=== PATIENT | male | born 1995 | race Caucasian/White ===

== ENCOUNTER 2022-10-06 08:38 | Inpatient (IN) | payer MEDICAID, SELFPAY ==
--- NOTE | ~2022-10-06 | US_ITS ---
EXAMINATION: US ABDOMEN LIMITED CLINICAL INFORMATION: Right upper quadrant pain. COMPARISON: None available. TECHNIQUE: Real-time imaging of the right upper quadrant abdominal viscera. FINDINGS: PANCREAS: Not seen. LIVER: Normal. The liver is normal in size. The liver contour is normal. Parenchymal echogenicity is normal. No focal hepatic lesion. There is no intrahepatic biliary duct dilatation seen. GALLBLADDER: Gallstones. The gallbladder wall is thickened and edematous suggestive of acute cholecystitis. COMMON BILE DUCT: Normal in caliber measuring 0.2 cm in diameter. RIGHT KIDNEY: Normal. No hydronephrosis. No renal calculi or focal parenchymal lesions. The kidney measures 10.7 cm in maximum dimension. FREE FLUID: None. US/US abdomen limited IMPRESSION: Gallstones. Thickened edematous gallbladder wall suggestive of acute cholecystitis.
[2022-10-06 08:52] VITALS: BP 121/74; PULSE 92; RESP 20; TEMP 36.6; O2SAT 98; BMI 33.0
[2022-10-06 09:23] LABS: Hematocrit 49.2 % (42.0-52.0); Hemoglobin 17.5 g/dl (14.0-18.0); Mean Corpuscular HGB Conc 35.6 g/dl (31.0-36.0); Mean Corpuscular Hemoglobin 32.2 pg (27.0-33.0); Mean Corpuscular Volume 90.4 fL (80.0-98.0); Mean Platelet Volume 10.5 fL (9.4-12.4); Platelet Count 349 X10*3/uL (160-400); Red Blood Count 5.44 X10*6/uL (4.60-5.80); Red Cell Distribution Width 11.7 % (11.0-16.0); White Blood Count 17.2 X10*3/uL (4.8-10.8)
[2022-10-06 09:49] LABS: Alanine Aminotransferase 50 U/L (0-40); Albumin Level 4.2 g/dL (3.5-5.0); Alkaline Phosphatase 137 U/L (39-117); Anion Gap 15 (12-20); Aspartate Amino Transferase 39 U/L (5-37); Bilirubin Direct 1.9 mg/dL (0.0-0.5); Bilirubin Total 3.7 mg/dL (0.0-1.0); Blood Urea Nitrogen 15 mg/dL (9-16); Calcium 9.5 mg/dL (8.4-10.2); Carbon Dioxide 30 mmol/L (22-29); Chloride 93 mmol/L (96-108); Creatinine Clr Calc Pharmacy 123.7; Estimated Glomerular Filt Rate > 60; Glucose Random 135 mg/dL (60-115); Lipase 16 U/L (8-78); Magnesium 2.6 mg/dL (1.6-2.6); Potassium 3.7 mmol/L (3.3-5.1); Sodium 134 mmol/L (135-145); Total Protein 7.4 g/dL (6.5-8.0)
[2022-10-06 10:03] VITALS: BP 123/90; PULSE 82; RESP 16; O2SAT 95
--- NOTE | 2022-10-06 10:06 | ED.ABDPAIN ---
HPI - Abdominal Pain General Chief Complaint: Abdominal Pain Stated Complaint: R side pain, not eating Time Seen by Provider: 10/06/22 09:52 Source: patient Limitations: no limitations History of Present Illness HPI narrative: Patient states pain started 6 days ago and he has not been able to eat solid food since. He has been drinking some liquids however. No prior history of similar pain. It is severe. Positive nausea with no vomiting. Some diarrhea at the onset but none recently. No back pain No lower abdominal pain Pain is and the right upper quadrant only. No precipitating factors of which he is aware History of appendectomy approximately 11 years ago. No postop complications or other abdominal surgery Related Data Allergies Allergy/AdvReac Type Severity Reaction Status Date / Time No Known Allergies Allergy Verified 10/06/22 08:56 Review of Systems Comments: No fevers or chills Comments: No chest pain Comments: No cough or dyspnea Comments: Right upper quadrant abdominal pain as noted. Comments: No dysuria or hematuria Comments: No musculoskeletal complaint Comments: No rash Comments: No focal deficit PMFSH Social History Social History Smoked in Last 30 Days: No Use of substances other than those prescribed or required for medical reasons: Yes Substance Use Type: Marijuana Advance Directives: No Physical Exam ED Vital Signs: Vital Signs - 24 hr 10/06/22 08:52 10/06/22 10:03 10/06/22 11:41 Temperature 98 F Pulse Rate 92 82 59 Respiratory Rate 20 16 16 Blood Pressure 121/74 123/90 H 121/71 Pulse Oximetry 98 95 95 Oxygen Delivery Method Room Air Room Air Room Air BMI result Body Mass Index 33.0 Const Other: Awake and alert. Appears uncomfortable but no severe distress HENMT Other: Mucosa dry Resp Other: Clear and equal bilaterally without wheezes rales or rhonchi Cardio Other: Regular rate and rhythm without murmurs rubs or gallops GI Other: Soft and nondistended. Right upper quadrant abdominal tenderness with guarding. Remainder of abdominal exam is unremarkable without tenderness Skin Other: Warm pink and dry without rash Neuro Other: No gross focal neuro deficits Medical Decision Making Medical Decision Making MDM Narrative: Patient with 6 days of severe right upper quadrant abdominal pain. Hepatitis Biliary colic Cholecystitis Choledocholithiasis Pancreatitis Duodenal ulcer Diverticulitis less likely. 10:09 Given 6 days of pain with minimal p.o. intake, will start IV fluids. [place] [id number]. Patient without gross signs of sepsis however. Will order lactic acid and blood cultures. Will also order IV antibiotics Metabolic panel is significant for total bilirubin of 3.7. AST and ALT are mildly elevated at 39 and 50 respectively. Alk-phos so 137. His lipase is normal at 16. Ultrasound ordered. 12:45. Ultrasound shows multiple gallstones with question of the impacted stone at the gallbladder neck. Gallbladder wall is thickened. Biliary ducts are normal. Case discussed overt tiger text with Dr. Toure, general surgery, who will admit to his service for further care. Final diagnosis cholecystitis secondary to cholelithiasis Lab Data 10/06/22 09:12 10/06/22 09:12 Labs: Lab Results 10/06/22 10/06/22 10/06/22 Range/Units 09:12 09:12 11:12 WBC 17.2 H (4.8-10.8) X10*3/uL RBC 5.44 (4.60-5.80) X10*6/uL Hgb 17.5 (14.0-18.0) g/dl Hct 49.2 (42.0-52.0) % MCV 90.4 (80.0-98.0) fL MCH 32.2 (27.0-33.0) pg MCHC 35.6 (31.0-36.0) g/dl RDW 11.7 (11.0-16.0) % Plt Count 349 (160-400) X10*3/uL MPV 10.5 (9.4-12.4) fL Absolute Nucleated RBC 0.000 (0.0-0.012) X10*3/uL Nucleated RBC % (auto) 0.0 (0.0-0.2) /100WBC Sodium 134 L (135-145) mmol/L Potassium 3.7 (3.3-5.1) mmol/L Chloride 93 L (96-108) mmol/L Carbon Dioxide 30 H (22-29) mmol/L Anion Gap 15 (12-20) BUN 15 (9-16) mg/dL Creatinine 0.94 (0.5-1.4) mg/dL Estim Creat Clear Calc 123.7 Estimated GFR > 60 Random Glucose 135 H (60-115) mg/dL Lactic Acid 0.8 (0.5-2.0) mmol/L Calcium 9.5 (8.4-10.2) mg/dL Magnesium 2.6 (1.6-2.6) mg/dL Total Bilirubin 3.7 H (0.0-1.0) mg/dL Direct Bilirubin 1.9 H (0.0-0.5) mg/dL AST 39 H (5-37) U/L ALT 50 H (0-40) U/L Alkaline Phosphatase 137 H (39-117) U/L Total Protein 7.4 (6.5-8.0) g/dL Albumin 4.2 (3.5-5.0) g/dL Lipase 16 (8-78) U/L Medications Administered Discontinued Medications Generic Name Dose Route Start Last Admin Trade Name Freq PRN Reason Stop Dose Admin Piperacillin Sod/Tazobactam 50 mls @ 100 mls/hr 10/06/22 10:11 10/06/22 11:15 Sod 3.375 gm/ Sodium Chloride IV 10/06/22 10:40 Infused ONCE ONE Infusion Ketorolac Tromethamine 30 mg 10/06/22 10:10/06/22 10:21 Ketorolac Tromethamine 15 Mg/Ml Vial IVPUSH 10/06/22 10:05 30 mg ONCE ONE Administration Ondansetron HCl 4 mg 10/06/22 10:10/06/22 10:20 Ondansetron Hcl 4 Mg/2 Ml Vial IVPUSH 10/06/22 10:05 4 mg ONCE ONE Administration Discharge Plan Discharge Patient Disposition: Admitted As Inpatient
[2022-10-06] MEDS: ondansetron HCL 4 MG/2 ML VIAL IVPUSH (10:20)
[2022-10-06] MEDS: Ketorolac Tromethamine 15 MG/ML VIAL 30 MG IVPUSH (10:21)
--- NOTE | 2022-10-06 10:28 | PC.NURSE ---
Pt is alert/oriented, reports RUQ x 6 days with inability to hold anything down x 6 days. Skin pwd. +bowel sounds, tender to ruq. Pain 6/10 at this time. awaiting imaging and second bld cx, abd to follow. IV established to left ac
[2022-10-06] MEDS: Piperacillin Sodium/Tazobactam 3.375 GM in 0.9 % Sodium Chloride 50 ML IV ×3 (10:45→21:47)
[2022-10-06 11:31] LABS: Lactic Acid 0.8 mmol/L (0.5-2.0)
[2022-10-06 11:41] VITALS: BP 121/71; PULSE 59; RESP 16; O2SAT 95
--- NOTE | 2022-10-06 13:08 | P.HPGS_ITS ---
History of Present Illness History of Present Illness Date of Service: 10/06/22 Chief complaint: Acute cholecystitis Narrative: Edward Martel is a 27 year old male presenting with a six day history of abdominal pain in the right upper quadrant and nausea and vomiting. He initially felt the nausea and vomiting was due to food poisoning. But the symptoms persisted in the abdominal pain increased in severity. He reports increased pain with movement but denies fever or chills. He is unable to tolerate any food or liquid. Noted his urine to be come dark orange in color. Subsequent workup in the emergency department revealed an elevated WBC of 17 K, elevated bilirubin level and ultrasound showing a gallbladder with thickened gallbladder wall and multiple gallstones within the gallbladder. The common bile duct however appeared normal. On initial presentation the patient reports his abdominal pain was 8/10 however currently it is 5/10. Review of Systems Review of Systems: Yes all other systems are reviewed and are negative Constitutional: Constitutional: Denies chills, Denies fever(s), Denies headache(s), Reports poor appetite and Denies weakness ENT: Denies headache(s) Cardiovascular: Cardiovascular: Denies chest pain, Denies irregular heart rhyt hm, Denies palpitations and Denies dyspnea Respiratory: Respiratory: Denies cough, Denies excessive phlegm production and Denies dyspnea Gastrointestinal: Gastrointestinal: Reports abdominal pain, Denies bloating, Denies change in bowel habits, Denies constipation, Denies heartburn, Denies d iarrhea, Reports nausea and Reports vomiting Genitourinary: Genitourinary: Denies difficulty urinating and Denies urinary frequency Comments: [place] Musculoskeletal: Musculoskeletal: Denies back pain, Denies muscle weakness and Denies numbness Integumentary/Breasts: Skin/Breast: Denies changing lesions and Denies unusual bruising Neurologic: Denies headache(s), Denies numbness, Denies paresthesias and Denies weakness Psychiatric: Psychiatric: Denies anxiety and Denies depression Endocrine: Endocrine: Denies palpitations Hematologic/Lymphatic: Hematologic/Lymphatic: Denies lymphadenopathy [facility] Social History Social History Smoked in Last 30 Days: No Use of substances other than those prescribed or required for medical reasons: Yes Substance Use Type: Marijuana Advance Directives: No Meds Allergies Allergy/AdvReac Type Severity Reaction Status Date / Time No Known Allergies Allergy Verified 10/06/22 08:56 Active Medications: Current Medications Hydromorphone HCl (Hydromorphone Hcl 0.5 Mg/0.5 Ml Syringe) 0.5 mg IVPUSH Q3H PRN; Protocol PRN Reason: Pain, Severe (Pain Scale 7-10) Acetaminophen (Ofirmev) 1,000 mg in 100 mls @ 400 mls/hr IV Q6H [facility] Stop: 10/07/22 07:14 Dextrose/Lactated Ringer's (D5lr) 1,000 mls @ 125 mls/hr IVCONT .Q8H [facility] Piperacillin Sod/Tazobactam (Sod 3.375 gm/ Sodium Chloride) 50 mls @ 100 mls/hr IV Q6H [facility] Ondansetron HCl (Ondansetron Hcl 4 Mg/2 Ml Vial) 4 mg IVPUSH QID PRN PRN Reason: Nausea Sodium Chloride (0.9 % Sodium Chloride Flush 3 Ml Syringe) 3 ml IVFLUSH QSHIFT [facility] Zolpidem Tartrate (Zolpidem Tartrate 5 Mg Tablet) 5 mg PO BEDTIME PRN PRN Reason: Insomnia Home Medications Medication Instructions Recorded Confirmed Last Taken Type albuterol sulfate 2.5 mg/3 mL 2.5 mg inhalation Q6H 10/06/22 10/06/22 Unknown History (0.083 %) solution for nebulization albuterol sulfate 90 mcg/actuation 2 puff inhalation Q4H PRN 10/06/22 10/06/22 Unknown History aerosol inhaler Shortness Of Breath Physical Exam Vital Signs: Vital Signs: Last Vital Signs Temp 98 F 10/06/22 08:52 Pulse 59 10/06/22 11:41 Resp 16 10/06/22 11:41 BP 121/71 10/06/22 11:41 Pulse Ox 95 10/06/22 11:41 O2 Del Method Room Air 10/06/22 11:41 BMI result Body Mass Index 33.0 Const: General: cooperative and no acute distress Nutritional Appearance: well nourished Orientation/consciousness: patient oriented x3 Limitations: no limitations HEENT: Head: Yes normocephalic and Yes atraumatic Ears: hearing grossly normal bilaterally Resp: Effort & Inspection: normal respiratory effort, no audible wheezes, no cough and no respiratory distress Cardio: Jugular venous distension: no JVD GI: Inspection: Yes normal to inspection Palpation (GI): Soft to palpation, Tenderness to palpation present (GI) in the RUQ and Gandhi's sign positive; with no rebound tenderness, no guarding and not rigid Percussion: Yes normal to percussion Auscultation: normal bowel sounds Rectal Exam - Male: Yes deferred Skin: Other: Warm, dry, no rash Neuro: General: patient oriented x3 Extrem: General: Yes no clubbing, cyanosis or edema Results Results Labs: Short CBC 10/06/22 Range/Units 09:12 WBC 17.2 H (4.8-10.8) X10*3/uL Hgb 17.5 (14.0-18.0) g/dl Hct 49.2 (42.0-52.0) % Plt Count 349 (160-400) X10*3/uL BMP 10/06/22 09:12 Sodium 134 L Potassium 3.7 Chloride 93 L Carbon Dioxide 30 H BUN 15 Creatinine 0.94 Calcium 9.5 Liver Function 10/06/22 Range/Units 09:12 Total Bilirubin 3.7 H (0.0-1.0) mg/dL Direct Bilirubin 1.9 H (0.0-0.5) mg/dL AST 39 H (5-37) U/L ALT 50 H (0-40) U/L Alkaline Phosphatase 137 H (39-117) U/L Albumin 4.2 (3.5-5.0) g/dL Assessment and Plan (1) Acute cholecystitis: Status: Acute (2) Cholelithiasis: Status: Acute Plan 27-year-old male patient presenting with acute cholecystitis due to cholelithiasis. Patient also has elevated liver functions which may be due gallbladder inflammation. Patient will be admitted, made NPO and started on IV fluids and antibiotics. LFTs will be repeated in a.m.. If they remain elevated a MR CP will be performed. If LFTs are improved, will schedule for laparoscopic cholecystectomy tomorrow. Patient understands and agrees with the plan. Time Spent With Patient Time: Total time managing care of this patient today ____ minutes. Quality Stroke Does the patient have a stroke diagnosis?: No VTE Prior VTE?: No VTE Risk Level:: Surgical - moderate VTE Device Contraindication: N/A - Device Ordered VTE Drug Contraindication: Treatment Not Indicated Procedures Date of Service Date of Service: 10/06/22
[2022-10-06 13:21] VITALS: BP 120/64; PULSE 65; RESP 16; O2SAT 95
[2022-10-06] MEDS: Acetaminophen 1,000 MG/100 ML PIGGYBACK 400 MG IV ×2 (13:37→21:23)
[2022-10-06] MEDS: Dextrose 5 % and Lactated Ring 1,000 ML 125 ML IVCONT ×2 (13:40→23:54)
--- NOTE | 2022-10-06 14:01 | PHA.MEDREC ---
Pharmacy Consult ? Medication Reconciliation Pharmacy has completed the medication reconciliation.
--- NOTE | 2022-10-06 14:04 | PC.NURSE ---
seen by Dr Toure, plan to trend labs tomorrow to determine dispo with plan for gallbladder removal if numbers trending down and consult GI if numbers trending up
[2022-10-06 20:00] VITALS: BP 119/61; PULSE 52; RESP 20; TEMP 36.9; O2SAT 96
[2022-10-06 23:47] VITALS: BP 140/66; PULSE 62; RESP 20; TEMP 37.1; O2SAT 95
[2022-10-06] MEDS: HYDROmorphone HCl 0.5 MG/0.5 ML SYRINGE IVPUSH (23:55)
[2022-10-07] VITALS (24 sets, daily range): BP systolic 105–141; BP diastolic 56–89; PULSE 50–92; RESP 12–20; TEMP 36.3–37.2; O2SAT 87–100; BMI 33.0
[2022-10-07] MEDS: 0.9 % Sodium Chloride Flush 3 ML SYRINGE IVFLUSH ×3 (01:27→18:18)
[2022-10-07] MEDS: Piperacillin Sodium/Tazobactam 3.375 GM in 0.9 % Sodium Chloride 50 ML IV ×3 (02:00→21:25)
[2022-10-07] MEDS: Acetaminophen 1,000 MG/100 ML PIGGYBACK 400 MG IV ×3 (02:07→21:07)
[2022-10-07 06:53] LABS: MANUAL DIFF FLAG NO
[2022-10-07 07:02] LABS: Basophils Absolute Auto 0.1 X10*3/uL (0.0-0.2); Basophils Percent Auto 1.1 % (0-2); Eosinophils Absolute Auto 1.3 X10*3/uL (0.0-0.4); Eosinophils Percent Auto 15.1 % (0-4); Hematocrit 45.1 % (42.0-52.0); Hemoglobin 15.5 g/dl (14.0-18.0); Imm Gran Abs Auto 0.05 X10*3/uL (0.00-0.03); Imm Gran Pct Auto 0.6 % (0.0-0.4); Lymphocytes Absolute Auto 1.1 X10*3/uL (1.2-4.9); Lymphocytes Percent Auto 13.3 % (20-40); Mean Corpuscular HGB Conc 34.4 g/dl (31.0-36.0); Mean Corpuscular Hemoglobin 32.5 pg (27.0-33.0); Mean Corpuscular Volume 94.5 fL (80.0-98.0); Mean Platelet Volume 10.5 fL (9.4-12.4); Monocytes Absolute Auto 0.9 X10*3/uL (0.1-1.2); Monocytes Percent Auto 10.9 % (2-11); Platelet Count 289 X10*3/uL (160-400); Red Blood Count 4.77 X10*6/uL (4.60-5.80); Red Cell Distribution Width 11.7 % (11.0-16.0); White Blood Count 8.4 X10*3/uL (4.8-10.8)
[2022-10-07 07:21] LABS: Alanine Aminotransferase 44 U/L (0-40); Albumin Level 3.3 g/dL (3.5-5.0); Alkaline Phosphatase 104 U/L (39-117); Anion Gap 11 (12-20); Aspartate Amino Transferase 28 U/L (5-37); Bilirubin Direct 0.8 mg/dL (0.0-0.5); Bilirubin Total 1.8 mg/dL (0.0-1.0); Blood Urea Nitrogen 13 mg/dL (9-16); Calcium 8.7 mg/dL (8.4-10.2); Carbon Dioxide 35 mmol/L (22-29); Chloride 95 mmol/L (96-108); Estimated Glomerular Filt Rate > 60; Glucose Random 109 mg/dL (60-115); Potassium 3.4 mmol/L (3.3-5.1); Sodium 138 mmol/L (135-145); Total Protein 5.8 g/dL (6.5-8.0)
--- NOTE | 2022-10-07 08:01 | P.PNGS_ITS ---
Subjective Subjective Date of Service: 10/07/22 Interval history: Patient feels improved with decreased abdominal pain. Physical Exam Vital Signs: Vital Signs: Last Vital Signs Temp 97.7 F 10/07/22 07:58 Pulse 82 10/07/22 07:58 Resp 20 10/07/22 07:58 BP 126/67 10/07/22 07:58 Pulse Ox 94 10/07/22 07:58 O2 Del Method Room Air 10/07/22 07:58 BMI result Body Mass Index 33.0 Const: General: comfortable Nutritional Appearance: well nourished Orientation/consciousness: patient oriented x3 Limitations: no limitations Resp: Effort & Inspection: normal respiratory effort, no audible wheezes, no cough and no respiratory distress GI: Inspection: Yes normal to inspection Palpation (GI): Soft to palpation and Tenderness to palpation present (GI) in the RUQ and Gandhi's sign positive Neuro: General: patient oriented x3 Extrem: General: Yes no clubbing, cyanosis or edema Objective Data Active Medications Hydromorphone HCl (Hydromorphone Hcl 0.5 Mg/0.5 Ml Syringe) 0.5 mg IVPUSH Q3H PRN; Protocol PRN Reason: Pain, Severe (Pain Scale 7-10) Last Admin: 10/06/22 23:55 Dose: 0.5 mg Documented By: MASOUD Dextrose/Lactated Ringer's (D5lr) 1,000 mls @ 125 mls/hr IVCONT .Q8H [facility] Last Admin: 10/06/22 23:54 Dose: 125 mls/hr Documented By: MASOUD Piperacillin Sod/Tazobactam (Sod 3.375 gm/ Sodium Chloride) 50 mls @ 100 mls/hr IV Q6H [facility] Last Infusion: 10/07/22 02:36 Dose: 0 mls/hr Documented By: MASOUD Cefotetan Disodium 2 gm/ (Sodium Chloride) 50 mls @ 100 mls/hr IV PREOP ONE Stop: 10/07/22 08:06 Ondansetron HCl (Ondansetron Hcl 4 Mg/2 Ml Vial) 4 mg IVPUSH QID PRN PRN Reason: Nausea Sodium Chloride (0.9 % Sodium Chloride Flush 3 Ml Syringe) 3 ml IVFLUSH QSHIFT [facility] Last Admin: 10/07/22 01:27 Dose: 3 ml Documented By: MASOUD Zolpidem Tartrate (Zolpidem Tartrate 5 Mg Tablet) 5 mg PO BEDTIME PRN PRN Reason: Insomnia Labs 10/07/22 06:22 10/07/22 06:22 Labs: Laboratory Results - last 24 hr 10/06/22 10/06/22 10/06/22 09:12 09:12 11:12 MCV 90.4 MCH 32.2 MCHC 35.6 RDW 11.7 Plt Count 349 MPV 10.5 Immature Gran % (Auto) Neut % (Auto) Lymph % (Auto) [place] % (Auto) Eos % (Auto) Baso % (Auto) Lymph # (Auto) [place] # (Auto) Eos # (Auto) Baso # (Auto) Abs Immat Gran (auto) Absolute Neuts (auto) Absolute Nucleated RBC 0.000 Nucleated RBC % (auto) 0.0 Anion Gap 15 Estim Creat Clear Calc 123.7 Estimated GFR > 60 Random Glucose 135 H Lactic Acid 0.8 Calcium 9.5 Magnesium 2.6 Total Bilirubin 3.7 H Direct Bilirubin 1.9 H AST 39 H ALT 50 H Alkaline Phosphatase 137 H Total Protein 7.4 Albumin 4.2 Lipase 16 10/07/22 10/07/22 06:22 06:22 MCV 94.5 MCH 32.5 MCHC 34.4 RDW 11.7 Plt Count 289 MPV 10.5 Immature Gran % (Auto) 0.6 H Neut % (Auto) 59.0 Lymph % (Auto) 13.3 L [place] % (Auto) 10.9 Eos % (Auto) 15.1 H Baso % (Auto) 1.1 Lymph # (Auto) 1.1 L [place] # (Auto) 0.9 Eos # (Auto) 1.3 H Baso # (Auto) 0.1 Abs Immat Gran (auto) 0.05 H Absolute Neuts (auto) 5.0 Absolute Nucleated RBC 0.000 Nucleated RBC % (auto) 0.0 Anion Gap 11 L Estim Creat Clear Calc 114.0 Estimated GFR > 60 Random Glucose 109 Lactic Acid Calcium 8.7 D Magnesium Total Bilirubin 1.8 H Direct Bilirubin 0.8 H AST 28 ALT 44 H Alkaline Phosphatase 104 Total Protein 5.8 L Albumin 3.3 L Lipase Procedures Date of Service Date of Service: 10/07/22 Progress Note: A&P Assessment and plan (1) Acute cholecystitis: Status: Acute (2) Cholelithiasis: Status: Acute Plan Overall, patient i improved with decreased abdominal pain; LFTs are trending do wnward as well suggestive of Mirizzi's syndrome or passed stone. Discussed laparoscopic or possible open cholecystectomy with the patient including the procedure, alternatives and risks. He consents to the procedure, which has been added on to todays schedule. Time Spent With Patient Time: Total time managing care of this patient today ____ minutes. No Severe Sepsis: No Severe Sepsis Quality Stroke Does the patient have a stroke diagnosis?: No VTE Prior VTE?: No VTE Risk Level:: Surgical - moderate VTE Device Contraindication: N/A - Device Ordered VTE Drug Contraindication: Treatment Not Indicated
[2022-10-07] MEDS: Dextrose 5 % and Lactated Ring 1,000 ML 125 ML IVCONT ×2 (08:04→17:26)
[2022-10-07] MEDS: ondansetron HCL 4 MG/2 ML VIAL IVPUSH (08:05)
--- NOTE | 2022-10-07 08:45 | MHC.CM.PN ---
CM met with Patient at bedside. Patient lives alone in a house and is functionally independent. Patient is currently unemployed and has no insurance; a referral has been made to [facility] [place] Financial Department. Home/self care is the goal and CM has initiated and will follow for dc planning. Patient is not covid vax'd and his PCP is Dr. Gato Byrd.
--- NOTE | 2022-10-07 11:46 | HO.ANESPROP2 ---
HPI - Anesthesia Eval Consult details Narrative: for lap. cholecystectomy PMFSH Active Problems Active Problems: All Active Problems (Updated 10/06/22 @ 12:47 by Odell Curiel MD) Acute cholecystitis (Acute) Cholelithiasis (Acute) Family History Family history of problems with anesthesia: No Surgical History History of Problems with Anesthesia: No Social History Social History Household Members: None Housing: House Do you presently have visiting nurse or other home services: No Patient Tobacco Use Status: Former Tobacco user Quit Date: 2015 Tobacco use type: Cigarette e-Cigarette/Vaping Use: Former Use Second Hand Smoke Exposure: Yes Substance Use Type: Marijuana service: No Current occupational status: unemployed Meds Allergies Allergy/AdvReac Type Severity Reaction Status Date / Time No Known Allergies Allergy Verified 10/06/22 08:56 Active Medications: Current Medications Hydromorphone HCl (Hydromorphone Hcl 0.5 Mg/0.5 Ml Syringe) 0.5 mg IVPUSH Q3H PRN; Protocol PRN Reason: Pain, Severe (Pain Scale 7-10) Last Admin: 10/06/22 23:55 Dose: 0.5 mg Dextrose/Lactated Ringer's (D5lr) 1,000 mls @ 125 mls/hr IVCONT .Q8H [facility] Last Infusion: 10/07/22 11:03 Dose: 0 mls/hr Piperacillin Sod/Tazobactam (Sod 3.375 gm/ Sodium Chloride) 50 mls @ 100 mls/hr IV Q6H [facility] Last Infusion: 10/07/22 09:39 Dose: Infused Ondansetron HCl (Ondansetron Hcl 4 Mg/2 Ml Vial) 4 mg IVPUSH QID PRN PRN Reason: Nausea Last Admin: 10/07/22 08:05 Dose: 4 mg Sodium Chloride (0.9 % Sodium Chloride Flush 3 Ml Syringe) 3 ml IVFLUSH QSHIFT [facility] Last Admin: 10/07/22 08:01 Dose: 3 ml Zolpidem Tartrate (Zolpidem Tartrate 5 Mg Tablet) 5 mg PO BEDTIME PRN PRN Reason: Insomnia Home Medications Medication Instructions Recorded Confirmed Last Taken Type albuterol sulfate 2.5 mg/3 mL 2.5 mg inhalation Q6H 10/06/22 10/06/22 Unknown History (0.083 %) solution for nebulization albuterol sulfate 90 mcg/actuation 2 puff inhalation Q4H PRN 10/06/22 10/06/22 Unknown History aerosol inhaler Shortness Of Breath Exam Exam Date and Time: October 07, 2022 1146 Height,Weight and Vital Signs: Height 5 ft 6 in Weight 92.98 kg Last Vital Signs Temp 97.4 F 10/07/22 11:20 Pulse 62 10/07/22 11:20 Resp 18 10/07/22 11:20 BP 124/73 10/07/22 11:20 Pulse Ox 95 10/07/22 11:20 O2 Del Method Room Air 10/07/22 11:20 Pertinent Lab Results Pertinent Lab Results: Laboratory Tests 10/06/22 10/06/22 10/06/22 09:12 09:12 11:12 WBC 17.2 H RBC 5.44 Hgb 17.5 Hct 49.2 MCV 90.4 MCH 32.2 MCHC 35.6 RDW 11.7 Plt Count 349 MPV 10.5 Immature Gran % (Auto) Neut % (Auto) Lymph % (Auto) [place] % (Auto) Eos % (Auto) Baso % (Auto) Lymph # (Auto) [place] # (Auto) Eos # (Auto) Baso # (Auto) Abs Immat Gran (auto) Absolute Neuts (auto) Absolute Nucleated RBC 0.000 Nucleated RBC % (auto) 0.0 Sodium 134 L Potassium 3.7 Chloride 93 L Carbon Dioxide 30 H Anion Gap 15 BUN 15 Creatinine 0.94 Estim Creat Clear Calc 123.7 Estimated GFR > 60 Random Glucose 135 H Lactic Acid 0.8 Calcium 9.5 Magnesium 2.6 Total Bilirubin 3.7 H Direct Bilirubin 1.9 H AST 39 H ALT 50 H Alkaline Phosphatase 137 H Total Protein 7.4 Albumin 4.2 Lipase 16 10/07/22 10/07/22 06:22 06:22 WBC 8.4 RBC 4.77 Hgb 15.5 Hct 45.1 MCV 94.5 MCH 32.5 MCHC 34.4 RDW 11.7 Plt Count 289 MPV 10.5 Immature Gran % (Auto) 0.6 H Neut % (Auto) 59.0 Lymph % (Auto) 13.3 L [place] % (Auto) 10.9 Eos % (Auto) 15.1 H Baso % (Auto) 1.1 Lymph # (Auto) 1.1 L [place] # (Auto) 0.9 Eos # (Auto) 1.3 H Baso # (Auto) 0.1 Abs Immat Gran (auto) 0.05 H Absolute Neuts (auto) 5.0 Absolute Nucleated RBC 0.000 Nucleated RBC % (auto) 0.0 Sodium 138 Potassium 3.4 Chloride 95 L Carbon Dioxide 35 H Anion Gap 11 L BUN 13 Creatinine 1.02 Estim Creat Clear Calc 114.0 Estimated GFR > 60 Random Glucose 109 Lactic Acid Calcium 8.7 D Magnesium Total Bilirubin 1.8 H Direct Bilirubin 0.8 H AST 28 ALT 44 H Alkaline Phosphatase 104 Total Protein 5.8 L Albumin 3.3 L Lipase Airway Mallampati Class: II (full casey) TM Dist: >3cm Neck ROM: Full Loose/Missing/Broken Teeth: Yes Heart: ok Lungs: ok Assessment and Plan Assessment Anesthesia Assessment: Anesthesia Plan Discussed and Chart Reviewed Final Anesthetic Review Family History of Problems with Anesthesia: No History of Problems with Anesthesia: No NPO: Yes ASA Class: II Final Preanesthetic Review: No Changes in Pt Med Stat, Meds/Allgs Chart Reviewed, Consent Obtained/Reviewed and Anes Risks/Benef Reviewed Patient Risk: Intermediate Procedure Risk: Intermediate Anesthetic Plan Anesthetic Plan: GA and Agree w/ Assess. and Plan Disposition: Standard PACU
--- NOTE | 2022-10-07 14:28 | W.PM.OPN ---
Operative Note Operative Note Date of Service: 10/07/22 Narrative: Preoperative diagnosis: acute cholecystitis due to cholelithiasis Postoperative diagnosis: Same Procedure: Laparoscopic cholecystectomy, converted to open cholecystectomy Surgeon: Cosme Toure MD Group Billing Coordinator: DEE Agosto Anesthesia: General endotracheal Indications for procedure: 27-year-old male patient presenting with severe abdominal pain right upper quadrant for 6 days presented to the emergency department found to have a markedly thickened gallbladder with multiple gallstones within the gallbladder. Operative findings: Acutely inflamed intrahepatic gallbladder with dense adhesions to the inferior surface against the transverse colon and omentum. Specimen: gallbladder Estimated blood loss: Three hundred Complications: none Procedure details: Patient was brought to the OR and placed in a supine position. After administering general anesthesia the patient's abdomen was prepped with ChloraPrep and draped in a sterile fashion. Local anesthesia consisting of 0.5% Sensorcaine without epinephrine was infiltrated in a periumbilical region. A 5 mm incision was made above the umbilicus in a transverse fashion. The Veress needle was then inserted while elevating abdominal cavity with towel clips. After positive drop test the abdomen was insufflated to a pressure of 15 mm of mercury. The Veress needle was then removed and a 5 mm trocar inserted. The camera was inserted in the abdomen explored. A 12 mm trocar was then placed in the epigastrium. Two 5 mm trocars placed in the right upper quadrant by the technical assistant. The patient was placed in reverse Trendelenburg positioning and rotated to the left. The gallbladder was found to be densely adherent to the surrounding tissue shoe. Attempts at freeing the peritoneum around the gallbladder were difficult due to the dense adhesions. Transverse colon mesentery was tightly adherent to the gallbladder wall. The decision was made to convert to an open procedure. At that point a subcostal incision was made with a scalpel on the right side. This was carried out through subcutaneous tissue. Anterior rectus sheath was then opened. Rectus muscle and the oblique muscles were then divided using electrocautery. posterior sheath and peritoneum were then entered the abdominal cavity entered. A self-retaining retractor was placed in the wounds. Using combination of blunt and sharp dissection the anterior wall of the gallbladder was gently dissected free. The gallbladder wall was markedly thickened intrahepatic. Peritoneum was than divided over the fundus of the gallbladder. The gallbladder was then dissected off the liver bed using a combination of blunt dissection with a peanut and electrocautery dissection. Dissection was continued down carefully in a retrograde fashion. The cystic artery was identified and clipped. This was then divided. Dissection was continued down towards the cystic duct. At this point the gallbladder was found to be markedly distended from the gallstones never the gallstones were removed to allow easier dissection. When the cystic duct was fully dissected a right angle clamp was placed at the junction between the neck of the gallbladder and cystic duct. This was then divided with a Metzenbaum scissors. The cystic duct was then ligated with a 2-0 silk tie. The gallbladder was removed and sent to pathology for further examination. Wounds were then irrigated with saline solution. Liver edge bleeding was controlled using 3-0 silk suture. The wounds were then thoroughly irrigated and suctioned dry. A large Fadi-Frazier drain was placed in the gallbladder fossa and brought out through a separate stab wound in the right upper quadrant. This was secured to the skin using a 3-0 nylon suture. This was then connected to bulb suction. Peritoneum was then closed using a running 0 Polysorb suture. Posterior sheath was closed using a running 0 Polysorb suture. Anterior sheath was then closed using a running 0 Polysorb suture. Vdial's fascia and dermis reapproximated using interrupted 3-0 Polysorb sutures. Skin was closed using skin cristal. The laparoscopic port sites were closed using skin cristal. Sterile dressings were then applied. The patient tolerated the procedure well. Sponge, instrument, and needle counts reported as correct. The patient was transferred to PACU in stable condition.
--- NOTE | 2022-10-07 14:40 | PC.NURSE ---
Addendum entered by Rj Parikh RN 10/07/22 15:49: see written order in chart by Dr. Lawson See pyxis pull times 14:35 for 200mcg, pulled fentanyl 200mcg and dilaudid 2 mg as per . Lulu at 14:38. Original Note: up arrival to pacu patient experiencing 10/10 writhing pain and as directed by . Stemp 200 mcg of fentanyl removed from elkin and . Stemp provided, additional 200 mcg requested and removed from elkin and . Stemp provided to patient and additional 2 mg of iv dilaudid pulled from pyxis, 1 mg provided and holding the additional 1mg. as per . Lulu anesthesia speaking about plan
[2022-10-07] MEDS: Ketorolac Tromethamine 30 MG/ML VIAL IVPUSH (15:21)
--- NOTE | 2022-10-07 17:27 | PC.NURSE ---
Dr. Zelaya to bedside cleared pt. to transfer to inpatient unit and apartment maintenance technician initiated, education provided, handoff on patient unit confirmed that patient to be placed on o2 sensing. report provided Roslyn Stephenson R.N.
[2022-10-07] MEDS: Morphine Sulfate/NS 100 MG/100 ML PLAST..BAG IVCONT (18:28)
[2022-10-08] VITALS (21 sets, daily range): BP systolic 108–128; BP diastolic 56–69; PULSE 60–91; RESP 15–20; TEMP 36.2–37.2; O2SAT 90–99
[2022-10-08] MEDS: Acetaminophen 1,000 MG/100 ML PIGGYBACK 400 MG IV ×4 (02:13→19:46)
[2022-10-08] MEDS: Dextrose 5 % and Lactated Ring 1,000 ML 125 ML IVCONT ×4 (02:15→18:04)
[2022-10-08] MEDS: Piperacillin Sodium/Tazobactam 3.375 GM in 0.9 % Sodium Chloride 50 ML IV ×4 (02:56→20:19)
--- NOTE | 2022-10-08 06:05 | PC.NURSE ---
Pt had not voided, BS for 500cc. Pt assisted to standing position w/ staff and was able to urinate 350c rayne urine.
[2022-10-08] MEDS: Albuterol Sulfate (0.083%) 2.5 MG/3 ML VIAL.NEB INHALE ×2 (06:11→10:42)
--- NOTE | 2022-10-08 07:41 | P.PNGS_ITS ---
Subjective Subjective Date of Service: 10/08/22 Interval history: Had a difficult night, felt like he was unable to take deep breaths due to pain. Was able to sleep a little this morning. Has not had anything to eat. OOB at bedside to urinate in urinal, has not ambulated. Physical Exam Vital Signs: Vital Signs: Last Vital Signs Temp 98.2 F 10/08/22 07:29 Pulse 78 10/08/22 07:29 Resp 20 10/08/22 07:29 BP 114/60 10/08/22 07:29 Pulse Ox 94 10/08/22 07:29 O2 Del Method Nasal Cannula 10/08/22 07:29 O2 Flow Rate 1 10/08/22 07:29 Oxygen Flow Rate 1 10/07/22 15:19 BMI result Body Mass Index 33.0 Const: General: comfortable, no acute distress and alert Orientation/consciousness: patient oriented x3 Resp: Effort & Inspection: normal respiratory effort GI: Other: RAVEN drain with sanguineous output Inspection: No distended and Yes incision (dressings c/d/i) Palpation (GI): Soft to palpation, Tenderness to palpation present (GI) (incisional), no guarding and not rigid Skin: General skin exam: no rashes or lesions noted Neuro: General: patient oriented x3 and moves all extremities Objective Data Active Medications Albuterol Sulfate (Albuterol Sulfate 90 Mcg 8 Gm Inhaler) 2 puff INHALE Q4H PRN PRN Reason: Shortness Of Breath Albuterol Sulfate (Albuterol Sulfate (0.083%) 2.5 Mg/3 Ml Vial.Neb) 2.5 mg INHALE Q6H [facility] Last Admin: 10/08/22 06:11 Dose: 2.5 mg Documented By: ROBYN Dextrose/Lactated Ringer's (D5lr) 1,000 mls @ 125 mls/hr IVCONT .Q8H [facility] Last Admin: 10/08/22 06:10 Dose: 125 mls/hr Documented By: EBONY Piperacillin Sod/Tazobactam (Sod 3.375 gm/ Sodium Chloride) 50 mls @ 100 mls/hr IV Q6H [facility] Last Infusion: 10/08/22 05:34 Dose: 0 mls/hr Documented By: EBONY Morphine Sulfate (Morphine Sulfate/Ns) 100 mg in 100 mls @ 0 mls/hr IVCONT .Q0M [facility]; Protocol Last Infusion: 10/07/22 20:30 Dose: 3 mg/hr, 3 mls/hr Documented By: EBONY Acetaminophen (Ofirmev) 1,000 mg in 100 mls @ 400 mls/hr IV Q6H [facility] Last Infusion: 10/08/22 02:37 Dose: 0 mls/hr Documented By: EBONY Naloxone HCl (Naloxone Hcl 0.4 Mg/Ml Vial) 0.2 mg IVPUSH Q2M PRN PRN Reason: Excessive sedation or RR < 8 Ondansetron HCl (Ondansetron Hcl 4 Mg/2 Ml Vial) 4 mg IVPUSH QID PRN PRN Reason: Nausea Last Admin: 10/07/22 08:05 Dose: 4 mg Documented By: JEFF Sodium Chloride (0.9 % Sodium Chloride Flush 3 Ml Syringe) 3 ml IVFLUSH [facility] Last Admin: 10/08/22 01:08 Dose: Not Given Documented By: EBONY Non-Admin Reason: IV Running Sodium Chloride (0.9 % Sodium Chloride Flush 3 Ml Syringe) 3 ml IVFLUSH [facility] Last Admin: 10/08/22 01:07 Dose: Not Given Documented By: EBONY Non-Admin Reason: IV Running Sodium Chloride (0.9 % Sodium Chloride Flush 3 Ml Syringe) 3 ml IVFLUSH [facility] Last Admin: 10/08/22 01:07 Dose: Not Given Documented By: EBONY Non-Admin Reason: IV Running Zolpidem Tartrate (Zolpidem Tartrate 5 Mg Tablet) 5 mg PO BEDTIME PRN PRN Reason: Insomnia Labs 10/07/22 06:22 10/07/22 06:22 Microbiology Microbiology Results: Microbiology 10/06/22 10:35 Blood Culture - Preliminary Blood - Venous No growth after 24 hours. 10/06/22 10:14 Blood Culture - Preliminary Blood - Venous No growth after 24 hours. Procedures Date of Service Date of Service: 10/08/22 Progress Note: A&P Assessment and plan (1) Acute cholecystitis: Status: Acute (2) S/P cholecystectomy: Status: Acute Plan 27 year old male admitted with acute cholecystitis, elevated LFTs now s/p lap attempted converted to open CCY. Intraop findings included acutely inflamed intrahepatic gallbladder with dense adhesions to the inferior surface against the transverse colon and omentum. Had difficulty overnight with pain control but improved this am. VSS. Abd exam is benign with appropriate post op tenderness, dressings intact. RAVEN drain with sanguineous output, will keep in place. Cont morphine PROFESSOR OF CHEMISTRY, ofirmev. Encouraged OOB and ambulation today, IS use. Repeat CBC this am. Diet as tolerated. Time Spent With Patient Time: Total time managing care of this patient today ____ minutes. Quality Stroke Does the patient have a stroke diagnosis?: No VTE Prior VTE?: No VTE Risk Level:: Surgical - moderate VTE Device Contraindication: N/A - Device Ordered VTE Drug Contraindication: Treatment Not Indicated
[2022-10-08 08:24] LABS: Hemoglobin 12.8 g/dl (14.0-18.0); Mean Corpuscular HGB Conc 33.7 g/dl (31.0-36.0); Mean Corpuscular Hemoglobin 31.9 pg (27.0-33.0); Mean Corpuscular Volume 94.8 fL (80.0-98.0); Mean Platelet Volume 10.3 fL (9.4-12.4); Platelet Count 295 X10*3/uL (160-400); Red Blood Count 4.01 X10*6/uL (4.60-5.80); Red Cell Distribution Width 11.8 % (11.0-16.0); White Blood Count 12.2 X10*3/uL (4.8-10.8)
[2022-10-08] MEDS: ondansetron HCL 4 MG/2 ML VIAL IVPUSH ×2 (09:46→16:26)
[2022-10-08] MEDS: 0.9 % Sodium Chloride Flush 3 ML SYRINGE IVFLUSH ×3 (09:47→23:49)
--- NOTE | 2022-10-08 12:59 | HO.POSTANES ---
Post Anesthesia Evaluation Post Anesthesia Evaluation Vital Signs: Vital Signs Temp Pulse Resp BP Pulse Ox O2 Del Method O2 Flow Rate 10/08/22 12:00 98.4 F 73 20 127/68 93 Room Air 10/08/22 10:43 75 16 10/08/22 10:00 98.8 F 75 20 123/67 96 Nasal Cannula 1 10/08/22 07:29 98.2 F 78 20 114/60 94 Nasal Cannula 1 10/08/22 06:30 60 18 124/58 L 97 10/08/22 04:30 63 18 108/59 L 97 10/08/22 05:42 98.9 F 60 18 124/58 L 97 Nasal Cannula 1 10/08/22 04:00 97.8 F 63 18 108/59 L 94 Nasal Cannula 1 10/08/22 02:30 82 17 123/56 L 97 10/08/22 01:44 82 17 123/56 L 97 Nasal Cannula 1.5 Anesthesia: General Endotracheal-GETA Mental Status: Awake Pain Control: Satisfactory (complaining of a lot of pain) Nausea/Vomiting: Mild Hydration: Adequate Anesthesia-Related Issues: No Anes. Related Issues
[2022-10-08] MEDS: Morphine Sulfate/NS 100 MG/100 ML PLAST..BAG IVCONT (17:19)
[2022-10-09] VITALS (18 sets, daily range): BP systolic 103–131; BP diastolic 55–76; PULSE 66–93; RESP 16–20; TEMP 36.1–37.9; O2SAT 95–98
[2022-10-09] MEDS: Acetaminophen 1,000 MG/100 ML PIGGYBACK 400 MG IV ×4 (01:41→20:43)
[2022-10-09] MEDS: Piperacillin Sodium/Tazobactam 3.375 GM in 0.9 % Sodium Chloride 50 ML IV ×4 (02:03→20:44)
[2022-10-09] MEDS: Dextrose 5 % and Lactated Ring 1,000 ML 125 ML IVCONT ×2 (02:08→10:18)
[2022-10-09] MEDS: Albuterol Sulfate (0.083%) 2.5 MG/3 ML VIAL.NEB INHALE ×2 (05:59→17:45)
--- NOTE | 2022-10-09 06:27 | PC.NURSE ---
Addendum entered by Darling Downey RN 10/09/22 07:33: foam cutting supervisor reviewed order for dietary server pump with this RN, supervisor forming and tempering aware of documentation on flowsheet. Original Note: Assumed care of patient at 2300. Patient on GAMING MANAGER pump, order: Morphine Sulfate/NS 100mg in 100 ml IVCONT per protocol mg/hr with Loading dose (mg): 3, Basal rate (mg/hr): 1, Patient bolus (mg): 1, Bolus interval (min): 10, # Boluses /hr: 6 @2330, Upon assessment of GAMING MANAGER pump, pump set at a rate of 1 mg/hr , MAR documentation for previous shift is documented at a rate of 3mg/hr. Upon documentation for 2329 this RN accidentally entered 3 mg/hr for rate instead of 1 mg/hr for dose rate and was unable to edit the documentation on flowsheet. MAR documentation going forward is entered correctly, dose rate of 1 mg/hr. The dose rate was not decreased, on this shift (11p-7a) even though the flowsheet documentation shows a decrease in rate, the dose rate was always programmed on the dietary server pump at a rate of 1mg/hr. foam cutting supervisor Nata, made aware
[2022-10-09] MEDS: 0.9 % Sodium Chloride Flush 3 ML SYRINGE IVFLUSH ×3 (08:13→20:44)
[2022-10-09] MEDS: ondansetron HCL 4 MG/2 ML VIAL IVPUSH (08:17)
--- NOTE | 2022-10-09 13:55 | PM.PNGS ---
Subjective Subjective Date of Service: 10/09/22 Interval history: Patient is still feeling very tired his pain control is better with his YARD ASSISTANT he is not very nauseated he has not been moving around very much Physical Exam Vital Signs: Vital Signs: Last Vital Signs Temp 98.6 F 10/09/22 12:00 Pulse 75 10/09/22 12:00 Resp 18 10/09/22 12:00 BP 125/64 10/09/22 12:00 Pulse Ox 98 10/09/22 12:00 O2 Del Method Nasal Cannula 10/09/22 12:00 O2 Flow Rate 1 10/09/22 12:00 Oxygen Flow Rate 1 10/07/22 15:19 BMI result Body Mass Index 33.0 Const: General: cooperative and tired appearing Orientation/consciousness: oriented to person, oriented to place and oriented to time HEENT: Head: Yes normal to inspection Resp: Effort & Inspection: normal respiratory effort Auscultation: clear to auscultation bilaterally Cardio: Rate: regular rate Rhythm: regular rhythm GI: Other: his abdomen is soft distended hypo bowel sounds incision area looks really quite good. He has a RAVEN drain which has some serosanguineous fluid present with a little bit of some leak around the drain but otherwise everything looks good. Skin: General skin exam: no rashes or lesions noted and no jaundice Neuro: General: oriented to person, oriented to place and oriented to time Extrem: General: Yes normal to inspection Objective Data Active Medications Albuterol Sulfate (Albuterol Sulfate 90 Mcg 8 Gm Inhaler) 2 puff INHALE Q4H PRN PRN Reason: Shortness Of Breath Albuterol Sulfate (Albuterol Sulfate (0.083%) 2.5 Mg/3 Ml Vial.Neb) 2.5 mg INHALE Q6H [facility] Last Admin: 10/09/22 11:32 Dose: Not Given Documented By: CIRILO Non-Admin Reason: Patient Refused Dextrose/Lactated Ringer's (D5lr) 1,000 mls @ 125 mls/hr IVCONT .Q8H [facility] Last Admin: 10/09/22 10:18 Dose: 125 mls/hr Documented By: SHAWNA Piperacillin Sod/Tazobactam (Sod 3.375 gm/ Sodium Chloride) 50 mls @ 100 mls/hr IV Q6H [facility] Last Infusion: 10/09/22 10:55 Dose: 0 mls/hr Documented By: SHAWNA Morphine Sulfate (Morphine Sulfate/Ns) 100 mg in 100 mls @ 0 mls/hr IVCONT .Q0M [facility]; Protocol Last Infusion: 10/09/22 12:00 Dose: 1 mg/hr, 1 mls/hr Documented By: SHAWNA Acetaminophen (Ofirmev) 1,000 mg in 100 mls @ 400 mls/hr IV Q6H [facility] Last Infusion: 10/09/22 08:25 Dose: 0 mls/hr Documented By: SHAWNA Naloxone HCl (Naloxone Hcl 0.4 Mg/Ml Vial) 0.2 mg IVPUSH Q2M PRN PRN Reason: Excessive sedation or RR < 8 Ondansetron HCl (Ondansetron Hcl 4 Mg/2 Ml Vial) 4 mg IVPUSH QID PRN PRN Reason: Nausea Last Admin: 10/09/22 08:17 Dose: 4 mg Documented By: SHAWNA Sodium Chloride (0.9 % Sodium Chloride Flush 3 Ml Syringe) 3 ml IVFLUSH [facility] Last Admin: 10/09/22 08:13 Dose: 3 ml Documented By: SHAWNA Sodium Chloride (0.9 % Sodium Chloride Flush 3 Ml Syringe) 3 ml IVFLUSH [facility] Last Admin: 10/09/22 08:13 Dose: Not Given Documented By: SHAWNA Non-Admin Reason: IV Running Sodium Chloride (0.9 % Sodium Chloride Flush 3 Ml Syringe) 3 ml IVFLUSH [facility] Last Admin: 10/09/22 08:13 Dose: Not Given Documented By: SHAWNA Non-Admin Reason: IV Running Zolpidem Tartrate (Zolpidem Tartrate 5 Mg Tablet) 5 mg PO BEDTIME PRN PRN Reason: Insomnia Labs 10/08/22 08:08 10/07/22 06:22 Microbiology Microbiology Results: Microbiology 10/06/22 10:35 Blood Culture - Preliminary Blood - Venous No growth after 48 hours. 10/06/22 10:14 Blood Culture - Preliminary Blood - Venous No growth after 48 hours. Procedures Date of Service Date of Service: 10/09/22 Progress Note: A&P Assessment and plan (1) S/P cholecystectomy: Status: Acute Plan 27-year-old male with significant cholecystitis laparoscopic converted to open cholecystectomy 2 days ago. Overall he is doing okay little slow but nothing of concern. Plan to encourage getting up and moving around using his incentive spirometer. Incision area looks fine GP drainage looks okay. Will check labs again tomorrow. Continue with antibiotics. We will switch him to p.o. pain meds in addition to his YARD ASSISTANT. He understands and agrees with all this Time Spent With Patient Time: Total time managing care of this patient today ____ minutes. Quality Stroke Does the patient have a stroke diagnosis?: No VTE Prior VTE?: No VTE Risk Level:: Surgical - moderate VTE Device Contraindication: N/A - Device Ordered VTE Drug Contraindication: Treatment Not Indicated
[2022-10-10] VITALS (17 sets, daily range): BP systolic 95–143; BP diastolic 59–73; PULSE 65–95; RESP 17–20; TEMP 36.2–37.3; O2SAT 92–99
[2022-10-10] MEDS: Piperacillin Sodium/Tazobactam 3.375 GM in 0.9 % Sodium Chloride 50 ML IV ×2 (02:07→08:40)
[2022-10-10] MEDS: Acetaminophen 1,000 MG/100 ML PIGGYBACK 400 MG IV ×3 (03:16→14:29)
[2022-10-10 06:27] LABS: MANUAL DIFF FLAG NO
[2022-10-10 06:46] LABS: Alanine Aminotransferase 38 U/L (0-40); Albumin Level 2.5 g/dL (3.5-5.0); Alkaline Phosphatase 89 U/L (39-117); Anion Gap 11 (12-20); Aspartate Amino Transferase 37 U/L (5-37); Bilirubin Total 0.7 mg/dL (0.0-1.0); Blood Urea Nitrogen 3 mg/dL (9-16); Calcium 7.9 mg/dL (8.4-10.2); Carbon Dioxide 30 mmol/L (22-29); Chloride 105 mmol/L (96-108); Creatinine Clr Calc Pharmacy 147.2; Estimated Glomerular Filt Rate > 60; Glucose Random 86 mg/dL (60-115); Potassium 3.6 mmol/L (3.3-5.1); Sodium 142 mmol/L (135-145); Total Protein 4.9 g/dL (6.5-8.0)
[2022-10-10 06:55] LABS: Basophils Absolute Auto 0.1 X10*3/uL (0.0-0.2); Basophils Percent Auto 0.5 % (0-2); Eosinophils Absolute Auto 1.5 X10*3/uL (0.0-0.4); Eosinophils Percent Auto 13.6 % (0-4); Hematocrit 33.4 % (42.0-52.0); Hemoglobin 11.1 g/dl (14.0-18.0); Imm Gran Abs Auto 0.08 X10*3/uL (0.00-0.03); Imm Gran Pct Auto 0.7 % (0.0-0.4); Lymphocytes Absolute Auto 2.7 X10*3/uL (1.2-4.9); Lymphocytes Percent Auto 24.5 % (20-40); Mean Corpuscular HGB Conc 33.2 g/dl (31.0-36.0); Mean Corpuscular Hemoglobin 32.6 pg (27.0-33.0); Mean Corpuscular Volume 97.9 fL (80.0-98.0); Mean Platelet Volume 10.1 fL (9.4-12.4); Monocytes Absolute Auto 0.7 X10*3/uL (0.1-1.2); Monocytes Percent Auto 6.7 % (2-11); Platelet Count 354 X10*3/uL (160-400); Red Blood Count 3.41 X10*6/uL (4.60-5.80); Red Cell Distribution Width 11.9 % (11.0-16.0); White Blood Count 11.1 X10*3/uL (4.8-10.8)
[2022-10-10] MEDS: Morphine Sulfate/NS 100 MG/100 ML PLAST..BAG IVCONT (10:10)
[2022-10-10] MEDS: Albuterol Sulfate (0.083%) 2.5 MG/3 ML VIAL.NEB INHALE ×2 (11:50→17:52)
--- NOTE | 2022-10-10 16:51 | PC.NURSE ---
pt lost his access today. this nurse had tried to get an IV but unsuccessful. Had an ED nurse came and tried but unsuccessful. He is a hard stick so no IV access now. notified. plan is to DC WORD PROCESSING MACHINE OPERATOR pump and switch to PO meds. For now WORD PROCESSING MACHINE OPERATOR pump had been paused.
[2022-10-10] MEDS: Amoxicillin/Potassium Clav 875 MG TABLET PO (17:40)
[2022-10-10] MEDS: oxyCODONE HCl Immed Release 5 MG TABLET PO (17:40)
--- NOTE | 2022-10-10 17:57 | P.PNGS_ITS ---
Subjective Subjective Date of Service: 10/10/22 Interval history: feeling better, not as sleepy, needs bowel movement, iv out and hard to get new one in Physical Exam Vital Signs: Vital Signs: Last Vital Signs Temp 97.2 F 10/10/22 15:25 Pulse 85 10/10/22 17:53 Resp 17 10/10/22 17:53 BP 134/73 10/10/22 15:25 Pulse Ox 95 10/10/22 15:25 O2 Del Method Room Air 10/10/22 15:25 O2 Flow Rate 1 10/10/22 13:00 Oxygen Flow Rate 1 10/07/22 15:19 BMI result Body Mass Index 33.0 Const: General: cooperative, healthy appearing, comfortable and no acute distress HEENT: Head: Yes normal to inspection Eyes: General: appearance normal, both eyes and all related structures Resp: Auscultation: clear to auscultation bilaterally Cardio: Rate: regular rate Rhythm: regular rhythm GI: Other: soft nondistended less tender - kitty with more serous fluid Inspection: Yes normal to inspection Objective Data Active Medications Albuterol Sulfate (Albuterol Sulfate 90 Mcg 8 Gm Inhaler) 2 puff INHALE Q4H PRN PRN Reason: Shortness Of Breath Albuterol Sulfate (Albuterol Sulfate (0.083%) 2.5 Mg/3 Ml Vial.Neb) 2.5 mg INHALE Q6H [facility] Last Admin: 10/10/22 17:52 Dose: 2.5 mg Documented By: CIRILO Amoxicillin/Clavulanate Potassium (Amoxicillin/Potassium Clav 875 Mg Tablet) 875 mg PO Q12H [facility] Last Admin: 10/10/22 17:40 Dose: 875 mg Documented By: SHAWNA Acetaminophen (Ofirmev) 1,000 mg in 100 mls @ 400 mls/hr IV Q6H [facility] Last Infusion: 10/10/22 14:45 Dose: 0 mls/hr Documented By: SHAWNA Ibuprofen (Ibuprofen 600 Mg Tablet) 600 mg PO Q6H PRN PRN Reason: Pain, Mild (Pain Scale 1-3) Ondansetron HCl (Ondansetron Odt 4 Mg Tab.Rapdis) 4 mg TRANSLINGU Q6H PRN PRN Reason: Nausea Oxycodone HCl (Oxycodone Hcl Immed Release 5 Mg Tablet) 5 mg PO Q4H PRN PRN Reason: Pain, Moderate (Pain Scale 4-6 Last Admin: 10/10/22 17:40 Dose: 5 mg Documented By: SHAWNA Oxycodone HCl (Oxycodone Hcl Immed Release 5 Mg Tablet) 10 mg PO Q4H PRN PRN Reason: Pain, Severe (Pain Scale 7-10) Sodium Chloride (0.9 % Sodium Chloride Flush 3 Ml [facility]ringe) [facility] Last Admin: 10/10/22 16:55 Dose: Not Given Documented By: SHAWNA Non-Admin Reason: No Access Sodium Chloride (0.9 % Sodium Chloride Flush 3 Ml Syringe) 3 ml IVFLUSH [facility] Last Admin: 10/10/22 16:55 Dose: Not Given Documented By: SHAWNA Non-Admin Reason: No Access Sodium Chloride (0.9 % Sodium Chloride Flush 3 Ml Syringe) 3 [facility] Last Admin: 10/10/22 16:55 Dose: Not Given Documented By: SHAWNA Non-Admin Reason: No Access Zolpidem Tartrate (Zolpidem Tartrate 5 Mg Tablet) 5 mg PO BEDTIME PRN PRN Reason: Insomnia Labs 10/10/22 06:22 10/10/22 06:22 Labs: Laboratory Results - last 24 hr 10/10/22 10/10/22 06:22 06:22 MCV 97.9 MCH 32.6 MCHC 33.2 RDW 11.9 Plt Count 354 MPV 10.1 Immature Gran % (Auto) 0.7 H Neut % (Auto) 54.0 Lymph % (Auto) 24.5 [place] % (Auto) 6.7 Eos % (Auto) 13.6 H Baso % (Auto) 0.5 Lymph # (Auto) 2.7 [place] # (Auto) 0.7 Eos # (Auto) 1.5 H Baso # (Auto) 0.1 Abs Immat Gran (auto) 0.08 H Absolute Neuts (auto) 6.0 Absolute Nucleated RBC 0.000 Nucleated RBC % (auto) 0.0 Anion Gap 11 L Estim Creat Clear Calc 147.2 Estimated GFR > 60 Random Glucose 86 Calcium 7.9 L D Total Bilirubin 0.7 AST 37 ALT 38 Alkaline Phosphatase 89 Total Protein 4.9 L Albumin 2.5 L Procedures Date of Service Date of Service: 10/10/22 Progress Note: A&P Assessment and plan (1) S/P cholecystectomy: Status: Acute Assessment and Plan: 27 year old male with laop converted to open sheila - cholecystitis doing well plan - slow advance diet, oob and ambulate ivf stop and convert to augmentin po for antibx po pain meds - oxycodone and ibuprofen Time Spent With Patient Time: Total time managing care of this patient today ____ minutes. Quality Stroke Does the patient have a stroke diagnosis?: No VTE Prior VTE?: No VTE Risk Level:: Surgical - moderate VTE Device Contraindication: N/A - Device Ordered VTE Drug Contraindication: Treatment Not Indicated
[2022-10-11] VITALS: BP 128/77; PULSE 91; RESP 20; TEMP 37.1; O2SAT 97
[2022-10-11] MEDS: Amoxicillin/Potassium Clav 875 MG TABLET PO ×2 (05:13→18:02)
[2022-10-11] MEDS: oxyCODONE HCl Immed Release 5 MG TABLET 10 MG PO ×4 (05:16→18:46)
[2022-10-11 08:00] VITALS: BP 137/67; PULSE 88; RESP 20; TEMP 36.2; O2SAT 94
--- NOTE | 2022-10-11 08:16 | P.PNGS_ITS ---
Subjective Subjective Date of Service: 10/11/22 <Lavonne Petersen PA-C - Last Filed: 10/11/22 08:48> 10/11/22 <Diaz Bar MD - Last Filed: 10/11/22 12:18> Interval history: Had difficulty over weekend with IV. Having incisional pain and pain at drain site. Tolerating diet. Has not had BM. <Lavonne Petersen PA-C - Last Filed: 10/11/22 08:48> Physical Exam Vital Signs: Vital Signs: Last Vital Signs Temp 97.1 F 10/11/22 08:00 Pulse 88 10/11/22 08:00 Resp 20 10/11/22 08:00 BP 137/67 10/11/22 08:00 Pulse Ox 94 10/11/22 08:00 O2 Del Method Room Air 10/11/22 08:00 O2 Flow Rate 1 10/10/22 13:00 Oxygen Flow Rate 1 10/07/22 15:19 BMI result Body Mass Index 33.0 <Lavonne Petersen PA-C - Last Filed: 10/11/22 08:48> Const: General: comfortable, no acute distress, well developed and alert <Lavonne Petersen PA-C - Last Filed: 10/11/22 08:48> Orientation/consciousness: patient oriented x3 <MARIELY Agosto Last Filed: 10/11/22 08:48> Resp: Effort & Inspection: normal respiratory effort <Lavonne Petersen PA-C - Last Filed: 10/11/22 08:48> GI: Other: RAVEN drain with serosanguineous drainage <Lavonne Petersen PA-C - Last Filed: 10/11/22 08:48> Inspection: No distended and Yes incision (clean) <MARIELY Agosto Last Filed: 10/11/22 08:48> Palpation (GI): Soft to palpation, Tenderness to palpation present (GI) (incisional), no guarding and not rigid <MARIELY Agosto Last Filed: 10/11/22 08:48> Skin: General skin exam: no rashes or lesions noted <MARIELY Agosto Last Filed: 10/11/22 08:48> Neuro: General: patient oriented x3 and moves all extremities <Lavonne Petersen PA-C - Last Filed: 10/11/22 08:48> Objective Data Active Medications Albuterol Sulfate (Albuterol Sulfate 90 Mcg 8 Gm Inhaler) 2 puff INHALE Q4H PRN PRN Reason: Shortness Of Breath Albuterol Sulfate (Albuterol Sulfate (0.083%) 2.5 Mg/3 Ml Vial.Neb) 2.5 mg INHALE Q6H [facility] Last Admin: 10/11/22 06:06 Dose: Not Given Documented By: ROBYN Non-Admin Reason: Patient Asleep Amoxicillin/Clavulanate Potassium (Amoxicillin/Potassium Clav 875 Mg Tablet) 875 mg PO Q12H [facility] Last Admin: 10/11/22 05:13 Dose: 875 mg Documented By: MIKE Docusate Sodium (Docusate Sodium 100 Mg Capsule) 100 mg PO BID [facility] Ibuprofen (Ibuprofen 600 Mg Tablet) 600 mg PO Q6H PRN PRN Reason: Pain, Mild (Pain Scale 1-3) Ondansetron HCl (Ondansetron Odt 4 Mg Tab.Rapdis) 4 mg TRANSLINGU Q6H PRN PRN Reason: Nausea Oxycodone HCl (Oxycodone Hcl Immed Release 5 Mg Tablet) 5 mg PO Q4H PRN PRN Reason: Pain, Moderate (Pain Scale 4-6 Last Admin: 10/10/22 17:40 Dose: 5 mg Documented By: SHAWNA Oxycodone HCl (Oxycodone Hcl Immed Release 5 Mg Tablet) 10 mg PO Q4H PRN PRN Reason: Pain, Severe (Pain Scale 7-10) Last Admin: 10/11/22 05:16 Dose: 10 mg Documented By: MIKE Polyethylene Glycol (Polyethylene Glycol 3350 17 Gm Powd.Pack) 17 gm PO DAILY [facility] Sodium Chloride (0.9 % Sodium Chloride Flush 3 Ml Syringe) 3 ml IVFLUSH QSHIFT [facility] Last Admin: 10/11/22 00:00 Dose: Not Given Documented By: MIKE Non-Admin Reason: No Access Sodium Chloride (0.9 % Sodium Chloride Flush 3 Ml Syringe) [facility] Last Admin: 10/11/22 00:00 Dose: Not Given Documented By: ANTOIC Non-Admin Reason: No Access Sodium Chloride (0.9 % Sodium Chloride Flush 3 Ml Syringe) 3 ml IVFLUSH QSHIFT [facility] Last Admin: 10/11/22 00:01 Dose: Not Given Documented By: ANTOIC Non-Admin Reason: No Access Zolpidem Tartrate (Zolpidem Tartrate 5 Mg Tablet) 5 mg PO BEDTIME PRN PRN Reason: Insomnia <Lavonne Petersen PA-C - Last Filed: 10/11/22 08:48> Labs CBC & Chem 7: 10/10/22 06:22 10/10/22 06:22 <MARIELY Agosto Last Filed: 10/11/22 08:48> Procedures Date of Service Date of Service: 10/11/22 <MARIELY Agosto Last Filed: 10/11/22 08:48> Progress Note: A&P Assessment and plan (1) S/P cholecystectomy: Status: Acute <MARIELY Agosto Last Filed: 10/11/22 08:48> Assessment and Plan: says he feels well tolerating diet abd soft incision clean RAVEN drain - sacnty output, serosanguinous looks well plan to dc drain today likely home tomorrow seen and examined independently <Diaz Bar MD - Last Filed: 10/11/22 12:18> (2) Acute cholecystitis: Status: Acute <MARIELY Agosto Last Filed: 10/11/22 08:48> Assessment and Plan: 27 year old male POD #4 s/p lap attempted converted to open CCY. Having difficulty with pain control on oral analgesics. VSS. Abd exam benign with appropriate post op tenderness. Will make tylenol and motrin ATC, PO oxycodone as needed. Colace, miralax added for bowel regimen. Will likely remove RAVEN drain later today. Home when pain improved, likely later today or tomorrow. <MARIELY Agosto Last Filed: 10/11/22 08:48> Time Spent With Patient Time: Total time managing care of this patient today ____ minutes. <Lavonne Petersen PA-C - Last Filed: 10/11/22 08:48> Quality Stroke Does the patient have a stroke diagnosis?: No <Lavonne Petersen PA-C - Last Filed: 10/11/22 08:48> VTE Prior VTE?: No <Lavonne Petersen PA-C - Last Filed: 10/11/22 08:48> VTE Risk Level:: Surgical - moderate <Lavonne Petersen PA-C - Last Filed: 10/11/22 08:48> VTE Device Contraindication: N/A - Device Ordered <Lavonne Petersen PA-C - Last Filed: 10/11/22 08:48> VTE Drug Contraindication: Treatment Not Indicated <Lavonne Petersen PA-C - Last Filed: 10/11/22 08:48>
[2022-10-11] MEDS: Ibuprofen 600 MG TABLET PO ×3 (10:47→20:09)
[2022-10-11] MEDS: Acetaminophen 325 MG TABLET 650 MG PO ×3 (10:49→20:11)
[2022-10-11] MEDS: Docusate Sodium 100 MG CAPSULE PO ×2 (10:50→20:09)
[2022-10-11] MEDS: polyethylene glycoL 3350 17 GM POWD.PACK PO (10:50)
[2022-10-11 11:35] VITALS: BP 121/71; PULSE 80; RESP 20; TEMP 35.9; O2SAT 94
[2022-10-11 15:58] VITALS: BP 125/68; PULSE 86; RESP 20; TEMP 36.4; O2SAT 95
[2022-10-11 19:34] VITALS: BP 121/72; PULSE 93; RESP 18; TEMP 36.8; O2SAT 93
[2022-10-12] VITALS: BP 129/72; PULSE 71; RESP 18; TEMP 36.6; O2SAT 96
[2022-10-12] MEDS: Ibuprofen 600 MG TABLET PO ×2 (02:58→07:18)
[2022-10-12] MEDS: Acetaminophen 325 MG TABLET 650 MG PO ×2 (02:58→07:18)
[2022-10-12 03:13] VITALS: BP 124/71; PULSE 68; RESP 18; TEMP 36.4; O2SAT 95
[2022-10-12] MEDS: Amoxicillin/Potassium Clav 875 MG TABLET PO (05:58)
[2022-10-12] MEDS: polyethylene glycoL 3350 17 GM POWD.PACK PO (07:17)
[2022-10-12] MEDS: Docusate Sodium 100 MG CAPSULE PO (07:17)
[2022-10-12] MEDS: 0.9 % Sodium Chloride Flush 3 ML SYRINGE IVFLUSH (07:18)
[2022-10-12 07:38] VITALS: BP 134/81; PULSE 79; RESP 18; TEMP 36.6; O2SAT 99
--- NOTE | 2022-10-12 08:20 | P.PNGS_ITS ---
Subjective Subjective Date of Service: 10/12/22 <Lavonne Petersen PA-C - Last Filed: 10/12/22 08:23> 10/12/22 <Diaz Bar MD - Last Filed: 10/12/22 09:49> Interval history: Feels well. Tolerating solid diet. Pain control improved. Wants to go home. <Lavonne Petersen PA-C - Last Filed: 10/12/22 08:23> Physical Exam Vital Signs: Vital Signs: Last Vital Signs Temp 97.8 F 10/12/22 07:38 Pulse 79 10/12/22 07:38 Resp 18 10/12/22 07:38 BP 134/81 10/12/22 07:38 Pulse Ox 99 10/12/22 07:38 O2 Del Method Room Air 10/12/22 07:38 O2 Flow Rate 1 10/10/22 13:00 Oxygen Flow Rate 1 10/07/22 15:19 BMI result Body Mass Index 33.0 <Lavonne Petersen PA-C - Last Filed: 10/12/22 08:23> Const: General: comfortable, no acute distress and alert <Lavonne flores PA-C - Last Filed: 10/12/22 08:23> Orientation/consciousness: patient oriented x3 <MARIELY Agosto Last Filed: 10/12/22 08:23> Resp: Effort & Inspection: normal respiratory effort <MARIELY Agosto Last Filed: 10/12/22 08:23> GI: Inspection: No distended and Yes incision (clean) <Lavonne Petersen PA-C - Last Filed: 10/12/22 08:23> Palpation (GI): Soft to palpation, Tenderness to palpation present (GI) (mild incisional), no guarding and not rigid <MARIELY Agosto Last Filed: 10/12/22 08:23> Skin: General skin exam: no rashes or lesions noted <MARIELY Agosto Last Filed: 10/12/22 08:23> Neuro: General: patient oriented x3 and moves all extremities <MARIELY Agosto Last Filed: 10/12/22 08:23> Objective Data Active Medications Acetaminophen (Acetaminophen 325 Mg Tablet) 650 mg PO Q6H [facility] Last Admin: 10/12/22 07:18 Dose: 650 mg Documented By: ROLY Albuterol Sulfate (Albuterol Sulfate 90 Mcg 8 Gm Inhaler) 2 puff INHALE Q4H PRN PRN Reason: Shortness Of Breath Albuterol Sulfate (Albuterol Sulfate (0.083%) 2.5 Mg/3 Ml Vial.Neb) 2.5 mg INHALE RQ6H [facility] Last Admin: 10/12/22 06:25 Dose: Not Given Documented By: TL Non-Admin Reason: Patient Asleep Amoxicillin/Clavulanate Potassium (Amoxicillin/Potassium Clav 875 Mg Tablet) 875 mg PO Q12H [facility] Last Admin: 10/12/22 05:58 Dose: 875 mg Documented By: CHRISTIANO Docusate Sodium (Docusate Sodium 100 Mg Capsule) 100 mg PO BID [facility] Last Admin: 10/12/22 07:17 Dose: 100 mg Documented By: ROLY Ibuprofen (Ibuprofen 600 Mg Tablet) 600 mg PO Q6H [facility] Last Admin: 10/12/22 07:18 Dose: 600 mg Documented By: ROLY Ondansetron HCl (Ondansetron Odt 4 Mg Tab.Rapdis) 4 mg TRANSLINGU Q6H PRN PRN Reason: Nausea Oxycodone HCl (Oxycodone Hcl Immed Release 5 Mg Tablet) 5 mg PO Q4H PRN PRN Reason: Pain, Moderate (Pain Scale 4-6 Last Admin: 10/10/22 17:40 Dose: 5 mg Documented By: SHAWNA Oxycodone HCl (Oxycodone Hcl Immed Release 5 Mg Tablet) 10 mg PO Q4H PRN PRN Reason: Pain, Severe (Pain Scale 8-10) Last Admin: 10/11/22 18:46 Dose: 10 mg Documented By: MARIO ALBERTO Polyethylene Glycol (Polyethylene Glycol 3350 17 Gm Powd.Pack) 17 gm PO DAILY [facility] Last Admin: 10/12/22 07:17 Dose: 17 gm Documented By: ROLY Sodium Chloride (0.9 % Sodium Chloride Flush 3 Ml Syringe) 3 ml IVFLUSH QSHIFT [facility] Last Admin: 10/12/22 07:18 Dose: 3 ml Documented By: ROLY <MARIELY Agosto Last Filed: 10/12/22 08:23> Labs CBC & Chem 7: 10/10/22 06:22 10/10/22 06:22 <MARIELY Agosto Last Filed: 10/12/22 08:23> Microbiology Microbiology Results: Microbiology 10/06/22 10:35 Blood Culture - Final Blood - Venous No growth after 5 days. 10/06/22 10:14 Blood Culture - Final Blood - Venous No growth after 5 days. <MARIELY Agosto Last Filed: 10/12/22 08:23> Procedures Date of Service Date of Service: 10/12/22 <MARIELY Agosto Last Filed: 10/12/22 08:23> Progress Note: A&P Assessment and plan (1) S/P cholecystectomy: Status: Acute <MARIELY Agosto Last Filed: 10/12/22 08:23> Assessment and Plan: continues to feel well good PO intake abd soft anicteric sclerae incision clean drain removed yesterday ok to dc home seen and examined independently <Diaz Bar MD - Last Filed: 10/12/22 09:49> (2) Acute cholecystitis: Status: Acute <MARIELY Agosto Last Filed: 10/12/22 08:23> Assessment and Plan: 27 year old male POD #5 s/p lap attempted converted to open CCY. Doing well post op and pain control improved. Abd remains benign with clean incision, RAVEN drain removed yesterday. Stable for dc to home today. F/u in [address] Toure. Colace for bowel regimen until moving bowels regularly. <MARIELY Garcia Last Filed: 10/12/22 08:23> Time Spent With Patient Time: Total time managing care of this patient today ____ minutes. <MARIELY Agosto Last Filed: 10/12/22 08:23> Quality Stroke Does the patient have a stroke diagnosis?: No <MARIELY Agosto Filed: 10/12/22 08:23> VTE Prior VTE?: No <Lavonne Petersen PA-C - Last Filed: 10/12/22 08:23> VTE Risk Level:: Surgical - moderate <Lavonne Petersen PA-C - Last Filed: 10/12/22 08:23> VTE Device Contraindication: N/A - Device Ordered <MARIELY Agosto Last Filed: 10/12/22 08:23> VTE Drug Contraindication: Treatment Not Indicated <MARIELY Agosto Last Filed: 10/12/22 08:23>
--- NOTE | 2022-10-12 08:55 | PM.DS ---
DS: Providers Provider Date of Service: 10/12/22 Date of admission: 10/06/22 12:43 Date of discharge: 10/12/22 Primary care physician: Gato Byrd MD Attending physician on admission: Cosme Toure Attending physician on discharge: Diaz Bar DS: Diagnosis Discharge Diagnosis (1) S/P cholecystectomy: Status: Acute (2) Acute cholecystitis: Status: Acute DS: Summary Hospital Course Hospital Course: BRIEF HPI: Edward Martel is a 27 year old male presenting with a six day history of abdominal pain in the right upper quadrant and nausea and vomiting. He initially felt the nausea and vomiting was due to food poisoning. But the symptoms persisted in the abdominal pain increased in severity. He reports increased pain with movement but denies fever or chills. He is unable to tolerate any food or liquid. Noted his urine to be come dark orange in color. Subsequent workup in the emergency department revealed an elevated WBC of 17 K, elevated bilirubin level and ultrasound showing a gallbladder with thickened gallbladder wall and multiple gallstones within the gallbladder. The common bile duct however appeared normal. On initial presentation the patient reports his abdominal pain was 8/10 however currently it is 5/10. HOSPITAL COURSE: The patient was admitted to the surgical service for further treatment of the acute cholecystitis. He was made NPO and started on IV fluids and antibiotics with plan to trend his LFTs and if improved, schedule for laparoscopic cholecystectomy. His LFTs downtrended and he was therefore added onto the OR schedule for that day. On 10/07/22, a laparoscopic attempted converted to open cholecystectomy was performed by Dr. Toure without complication. Acutely inflamed intrahepatic gallbladder was found with dense adhesions to the inferior surface against the transverse colon and omentum. RAVEN drain was placed. He tolerated the procedure well. The patient had an uncomplicated but slow recovery course. He had severe post op pain and initially required a [employer] for pain control. This was discontinued on POD #3 and he was transitioned to PRN analgesics. His RAVEN had scanty nonbilious drainage and was removed. He remained inpatient for pain control until POD #5. On the day of discharge, he was tolerating a solid diet, his pain was adequately controlled on PO analgesics. His abdomen was benign with appropriate post op tenderness and clean incision. He was discharged to home on 10/12/22 in stable condition. He is to follow up in the office in 1 week. Status at Discharge Functional status at discharge: independent ambulation Overall status at discharge: patient is progressing back to baseline Time Spent with Patient Time attestation: Total time managing care of this patient today ____ minutes. Discharge coordination time: Less than 30 minutes Quality: Safe Use of Opioids Does Pt have an Active Cancer Diagnosis on the Problem List?: No Quality: Stroke Does the patient have a stroke diagnosis?: No Physical Exam Vital Signs: Vital Signs: Last Vital Signs Temp 97.8 F 10/12/22 07:38 Pulse 79 10/12/22 07:38 Resp 18 10/12/22 07:38 BP 134/81 10/12/22 07:38 Pulse Ox 99 10/12/22 07:38 O2 Del Method Room Air 10/12/22 07:38 O2 Flow Rate 1 10/10/22 13:00 Oxygen Flow Rate 1 10/07/22 15:19 BMI result Body Mass Index 33.0 Const: General: comfortable, no acute distress and alert Orientation/consciousness: patient oriented x3 Resp: Effort & Inspection: normal respiratory effort GI: Inspection: No distended and Yes incision (clean, cristal intact) Palpation (GI): Soft to palpation, Tenderness to palpation present (GI) (incisional), no guarding and not rigid Skin: General skin exam: no rashes or lesions noted and no jaundice Neuro: General: patient oriented x3 and moves all extremities DS: Data Data Completed and Pending Completed studies during hospitalization [Text1]: 10/07/22 13:46 Surgical [PTH] Routine Gallbladder, cholecystectomy: -Acute on chronic cholecystitis with hemorrhage and necrosis.? -Cholelithiasis. Discharge Plan Discharge Anticipated Discharge Date/Time: 10/12/22 13:12 Patient Disposition: Home, Self-Care Discharge Diagnosis: acute cholecystitis s/p laparoscopic cholecystectomy Referrals: Cosme Toure MD [Physician] - 1 Week Gato Byrd MD [Primary Care Provider] - 1 Week Discharge Medications: New docusate sodium [Colace] 100 mg capsule 100 mg PO BID Qty: 30 0RF acetaminophen 500 mg tablet 1,000 mg PO Q6H PRN (Reason: pain) Qty: 30 0RF ibuprofen 600 mg tablet 600 mg PO Q6H PRN (Reason: pain) Qty: 30 0RF oxycodone 5 mg tablet 5 mg PO Q4H PRN (Reason: Pain (Scale Score 7-10)) Qty: 24 0RF Rx Instructions: Partial Fill upon patient request. Continued albuterol sulfate 2.5 mg /3 mL (0.083 %) solution for nebulization 2.5 mg inhalation Q6H albuterol sulfate 90 mcg/actuation HFA aerosol inhaler 2 puff INHALATION Q4H PRN (Reason: Shortness Of Breath) Discharge Orders: Discharge Order (Routine); Ordered 10/12/22 Ordered By: Lavonne Petersen Diet: Low fat, low cholesterol Activity on Discharge: No heavy lifting Stand Alone Forms: Patient Portal Discharge page Activity Restrictions/Additional Instructions: If the incision area is tender, you may apply an ice pack for short intervals (No more than 20 minutes on, followed by at least 20 minutes off). Do not apply heat. Do not use creams, lotions, or topical antibiotics. These can cause infection or allergic reaction. Ok to shower. You have cristal closing your incision and these will be removed approximately 10-14 days after surgery. NO HEAVY LIFTING (>10lbs) or strenuous activity. Follow up in office. ([phone]) Call Your Doctor If: -Your temperature exceeds 101.5? F -You experience excessive pain or swelling -You have an unexpected reaction to medication -You have excessive bleeding -You experience continued vomiting/nausea -Your incision begins to separate -Your incision shows signs of infection such as increased redness, swelling, excessive pain, drainage (light blood or clear fluid is normal) or heat Care Plan Goals: Return to baseline health and resume normal activities following recovery period. Health Concerns: acute cholecystitis Plan of Treatment: s/p cholecystectomy f/u in office in 1 week Assessment: Doing well post op
--- NOTE | 2022-10-12 09:06 | MHC.CM.PN ---
pt dcd home no skilled servceis ordered by
== END 2022-10-12 09:39 | disposition home or self-care (01) | DRG 263 ==
LOC: HO.ED 12:47 → HO.EDOVER 13:05 → HO.IMC 17:00 → HO.S3 10-11 18:03
PROVIDERS: Physician Assistant Surgical; Surgery; Admitting Provider Surgery; Emergency Provider Emergency Medicine; PCP Family Medicine; Visit Provider Surgery
PROC: 0FT44ZZ Resection of Gallbladder, Percutaneous Endoscopic Approach (ICD-10-PCS; CPT 47562; principal; 2022-10-07 12:00)
DX: K80.00 Calculus of gallbladder with acute cholecystitis without obstruction (principal); K82.8 Other specified diseases of gallbladder; Z79.899 Other long term (current) drug therapy
CPT/HCPCS: 36415; 76705; 80048; 80053; 80076; 83605; 83690; 83735; 85025; 85027; 87040; 88304; 94640; 99285; J0131; J1170; J1885; J2270; J2405; J2543; J2550; J3010